=== PATIENT | male | born 1980 | race African-American/Black ===

== ENCOUNTER 2016-04-02 11:50 | Emergency (ER) | payer OTHER ==
[2016-04-02 11:52] VITALS: BP 137/78; PULSE 82; RESP 20; TEMP 97.5; O2SAT 97
== END 2016-04-02 12:38 | disposition left against medical advice (07) ==
LOC: NED 11:50
DX: R68.89 Other general symptoms and signs (principal)
CPT/HCPCS: 99281

== ENCOUNTER 2016-06-09 08:04 | Emergency (ER) | payer OTHER ==
[~2016-06-09] VITALS: Ht 167.6 cm; Wt 65.0 kg
[2016-06-09 08:05] VITALS: BP 124/74; PULSE 71; RESP 15; TEMP 98.2; O2SAT 98
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
[2016-06-09 09:05] LABS: AUTOMATED NEUTROPHIL # 2.8 TH/MM3 (1.8-7.7); BASOPHIL % 0.7 % (0.0-2.0); EOSINOPHIL # 0.4 TH/MM3 (0-0.4); EOSINOPHIL % 6.9 % (0.0-4.0); HEMATOCRIT 43.3 % (39.0-51.0); LYMPHOCYTE # 1.8 TH/MM3 (1.0-4.8); MEAN CELL VOLUME 85.4 FL (80.0-100.0); MEAN CORPUSCULAR HEMOGLOBIN 29.2 PG (27.0-34.0); MEAN CORPUSCULAR HGB CONC 34.2 % (32.0-36.0); MONO % 11.4 % (0.0-8.0); PLATELET COUNT 243 TH/MM3 (150-450); RED BLOOD COUNT 5.07 MIL/MM3 (4.50-5.90); RED CELL DISTRIBUTION WIDTH 13.6 % (11.6-17.2); WHITE BLOOD COUNT 5.8 TH/MM3 (4.0-11.0)
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
[2016-06-09 09:10] LABS: HEMO FLAGS AUTO DIFF
[2016-06-09] MEDS ORDERED: HALO100P IM (09:10)
[2016-06-09] MEDS ORDERED: TETANUS/DIPHTHERIA TOXOID ADULT 0.5 ML VIAL IM ONE (09:15)
--- NOTE | 2016-06-09 09:15 | RADRPT ---
EXAM DATE/TIME: 06/09/2016 09:00 [facility] COMPARISON: No previous studies available for comparison. INDICATIONS : Laceraion to eyelid, and forehead RADIATION DOSE: 36.51 CTDIvol (mGy) MEDICAL HISTORY : None SURGICAL HISTORY : None. ENCOUNTER: Initial ACUITY: 1 day PAIN SCALE: Non-responsive LOCATION: cranial TECHNIQUE: Multiple contiguous axial images were obtained of the head. Using automated exposure control and adj ustment of the mA and/or kV according to patient size, radiation dose was kept as low as reasonably a chievable to obtain optimal diagnostic quality images. FINDINGS: CEREBRUM: The ventricles are normal for age. No evidence of midline shift, mass lesion, hemorrhage or acute in farction. No extra-axial fluid collections are seen. POSTERIOR FOSSA: The cerebellum and brainstem are intact. The 4th ventricle is midline. The cerebellopontine angle i s unremarkable. EXTRACRANIAL: The visualized portion of the orbits is intact. SKULL: The calvaria is intact. No evidence of skull fracture. CONCLUSION: Negative trauma CT. Terry Blanco MD on June 09, 2016 at 9:12 Board Certified Radiologist. This report was verified electronically.
[2016-06-09 09:21] LABS: ANION GAP 9 MEQ/L (5-15); AST (GOT) 20 U/L (15-37); BICARBONATE 27.3 MEQ/L (21.0-32.0); BLOOD UREA NITROGEN 13 MG/DL (7-18); CHLORIDE 102 MEQ/L (98-107); GLOMERULAR FILTRATION RATE 86 ML/MIN (>89); POTASSIUM 3.7 MEQ/L (3.5-5.1); SODIUM (NA) 138 MEQ/L (136-145)
[2016-06-09 09:24] LABS: ALKALINE PHOSPHATASE 64 U/L (45-117); ALT (GPT) 35 U/L (12-78); CREATINE KINASE 241 U/L (39-308); TOTAL BILIRUBIN ADULT 0.2 MG/DL (0.2-1.0)
[2016-06-09 09:25] LABS: ACETAMINOPHEN LESS THAN 2.0 MCG/ML (10.0-30.0)
--- NOTE | 2016-06-09 09:36 | RADRPT ---
EXAM DATE/TIME: 06/09/2016 09:00 [facility] COMPARISON: No previous studies available for comparison. INDICATIONS : Laceraion to eyelid and forehead RADIATION DOSE: 16.96 CTDIvol (mGy) MEDICAL HISTORY : None SURGICAL HISTORY : None. ENCOUNTER: Initial ACUITY: 1 day PAIN SCALE: Non-responsive LOCATION: neck TECHNIQUE: Volumetric scanning of the cervical spine was performed. Multiplanar reconstructions in the sagittal, coronal and oblique axial planes were performed. Using automated exposure control and adjustment o f the mA and/or kV according to patient size, radiation dose was kept as low as reasonably achievable to obtain optimal diagnostic quality images. FINDINGS: There is normal sagittal spine alignment of the cervical spine. No anterolisthesis or retrolisthesis is present. The atlantoaxial relationship is within normal limits. There is no prevertebral soft tiss ue swelling present. No fracture or dislocation is identified. No disc herniation is visualized in th e upper cervical spine. The visualized portions of the posterior fossa, paraspinous soft tissues, and upper lung zones demons trate no acute abnormality. CONCLUSION: No acute cervical spine abnormality is identified. Higinio Kee MD on June 09, 2016 at 9:31 Board Certified Radiologist. This report was verified electronically.
[2016-06-09 09:40] LABS: PLATELET ESTIMATE SMEAR NORMAL (NORMAL); PLATELET MORPHOLOGY NORMAL (NORMAL); SCAN/DIFF AUTO DIFF CONFIRMED
--- NOTE | 2016-06-09 10:14 | RADRPT ---
EXAM DATE/TIME: 06/09/2016 10:03 [facility] COMPARISON: No previous studies available for comparison. INDICATIONS : Left hand pain and laceration, cut on broken window. MEDICAL HISTORY : None. SURGICAL HISTORY : None. ENCOUNTER: Initial ACUITY: 1 day PAIN SCORE: 5/10 LOCATION: Left anterior hand, first metacarpal FINDINGS: A standard 3 view examination of the left hand was obtained and demonstrates a small radiopaque forei gn body in the soft tissues adjacent to the first metacarpal. This measures approximately 2 x 0.1 mm in diameter. There are no bony abnormalities. CONCLUSION: Small radiopaque foreign body most consistent with a glass fragment. Terry Blanco MD on June 09, 2016 at 10:10 Board Certified Radiologist. This report was verified electronically.
[2016-06-09] MEDS ORDERED: LIDOCAINE HCL 1% 50 ML VIAL INFIL ONE (10:45)
--- NOTE | 2016-06-09 11:19 | PD ---
Physical Exam Time Seen by Provider: 10:30 Narrative I was asked by Dr. Shabazz to perform laceration repair and fb removal. Data Data Last Documented VS Vital Signs Date Time Temp Pulse Resp B/P Pulse Ox O2 Delivery O2 Flow Rate FiO2 06/09/16 08:18 82 06/09/16 08:05 98.2 15 124/74 98 Orders Complete Blood Count With Diff (06/09/16 08:24) Comprehensive Metabolic Panel (06/09/16 08:24) Psych Screen (06/09/16 08:24) Drug Screen, Random Urine (06/09/16 08:24) Alcohol (Ethanol) (06/09/16 08:24) Salicylates (Aspirin) (06/09/16 08:24) Tylenol (Acetaminophen) (06/09/16 08:24) Creatine Kinase (Cpk) (06/09/16 08:24) Ct Brain W/O Iv Contrast(Rout) (06/09/16 08:24) Ct Cerv Spine W/O Contrast (06/09/16 08:24) Apply Cervical Collar (06/09/16 08:24) Chest, Pa & Lat (06/09/16 ) Tetanus/Diphtheria Tox Adult (Tetanus/Di (06/09/16 09:15) Hand, Complete ([id number]) (06/09/16 ) Lidocaine 1% Inj (50 Ml) (Xylocaine 1% I (06/09/16 10:45) Labs Laboratory Tests Test 06/09/16 08:50 White Blood Count 5.8 TH/MM3 Red Blood Count 5.07 MIL/MM3 Hemoglobin 14.8 GM/DL Hematocrit 43.3 % Mean Corpuscular Volume 85.4 FL Mean Corpuscular Hemoglobin 29.2 PG Mean Corpuscular Hemoglobin 34.2 % Concent Red Cell Distribution Width 13.6 % Platelet Count 243 TH/MM3 Mean Platelet Volume 8.3 FL Neutrophils (%) (Auto) 49.0 % Lymphocytes (%) (Auto) 32.0 % Monocytes (%) (Auto) 11.4 % Eosinophils (%) (Auto) 6.9 % Basophils (%) (Auto) 0.7 % Neutrophils # (Auto) 2.8 TH/MM3 Lymphocytes # (Auto) 1.8 TH/MM3 Monocytes # (Auto) 0.7 TH/MM3 Eosinophils # (Auto) 0.4 TH/MM3 Basophils # (Auto) 0.0 TH/MM3 CBC Comment AUTO DIFF Differential Comment AUTO DIFF CONFIRMED Platelet Estimate NORMAL Platelet Morphology Comment NORMAL Sodium Level 138 MEQ/L Potassium Level 3.7 MEQ/L Chloride Level 102 MEQ/L Carbon Dioxide Level 27.3 MEQ/L Anion Gap 9 MEQ/L Blood Urea Nitrogen 13 MG/DL Creatinine 1.17 MG/DL Estimat Glomerular Filtration 86 ML/MIN Rate Random Glucose 78 MG/DL Calcium Level 8.7 MG/DL Total Bilirubin 0.2 MG/DL Aspartate Amino Transf 20 U/L (AST/SGOT) Alanine Aminotransferase 35 U/L (ALT/SGPT) Alkaline Phosphatase 64 U/L Total Creatine Kinase 241 U/L Total Protein 7.5 GM/DL Albumin 3.6 GM/DL Salicylates Level 2.3 MG/DL Acetaminophen Level LESS THAN 2.0 MCG/ML Ethyl Alcohol Level LESS THAN 3 MG/DL MDM Medical Record Reviewed: Yes Supervised Visit with BALAJI: No Differential Diagnosis forehead laceration, left hand laceration, left hand fb Narrative Course I examined the patient. He has a small 0.5 cm laceration above his left forehead. I discussed repair and patient was very concerned. It was difficult to assess area as patient would not sit still. I eventually was able to properly assess, clean and repair. I used dermabond and steri strip to the laceration. Patient tolerated without incident. He has a small superficial laceration to the left hand proximal to thumb on the dorsum. I was able to clean the area and also closed using dermabond and 2 steri strips. I went to locally anesthetize the left hand foreign body and laceration and patient started to jump and tense up. I tried to discuss repair with him and he would not allow me to locally anesthetize. I started working on the patient at 10:30 and at 10:56 he requested someone come to the room to hold his hand. He also requested that I put him to sleep. I explained that the procedure would be very quick. Despite numerous attempts, patient would not allow me to administer lidocaine. 1105: I discussed with Dr. Shabazz and signed off the case. Another provider will try to assist the patient once he is ready. Procedures Procedure Narrative left facial laceration above the eye brow: 0.5 cm area properly cleaned and dermabond with single steri strip used to approximate and close. Patient tolerated without incident. Left hand proximal to thumb on dorsum: 2 cm laceration (superficial) area cleaned and dermabond and two steri strips applied. Patient tolerated without incident. Diagnosis Primary Impression: Facial laceration Qualified Code: S01.81XA - Facial laceration, initial encounter Condition: Stable Erma Rodriguez Jun 09, 2016 11:19
[2016-06-09] MEDS ORDERED: CLIN1CAP6 PO (11:40)
--- NOTE | 2016-06-09 11:43 | PD ---
Physical Exam Time Seen by Provider: 11:39 Narrative I was asked to perform a laceration repair to this patient's left hand. For further details regarding the patient's visit please see the physician's documentation. Data Data Last Documented VS Vital Signs Date Time Temp Pulse Resp B/P Pulse Ox O2 Delivery O2 Flow Rate FiO2 06/09/16 08:18 82 06/09/16 08:05 98.2 15 124/74 98 Orders Complete Blood Count With Diff (06/09/16 08:24) Comprehensive Metabolic Panel (06/09/16 08:24) Psych Screen (06/09/16 08:24) Drug Screen, Random Urine (06/09/16 08:24) Alcohol (Ethanol) (06/09/16 08:24) Salicylates (Aspirin) (06/09/16 08:24) Tylenol (Acetaminophen) (06/09/16 08:24) Creatine Kinase (Cpk) (06/09/16 08:24) Ct Brain W/O Iv Contrast(Rout) (06/09/16 08:24) Ct Cerv Spine W/O Contrast (06/09/16 08:24) Apply Cervical Collar (06/09/16 08:24) Chest, Pa & Lat (06/09/16 ) Tetanus/Diphtheria Tox Adult (Tetanus/Di (06/09/16 09:15) Hand, Complete ([id number]) (06/09/16 ) Lidocaine 1% Inj (50 Ml) (Xylocaine 1% I (06/09/16 10:45) Diet Regular Basic (06/09/16 Lunch) Labs Laboratory Tests Test 06/09/16 08:50 White Blood Count 5.8 TH/MM3 Red Blood Count 5.07 MIL/MM3 Hemoglobin 14.8 GM/DL Hematocrit 43.3 % Mean Corpuscular Volume 85.4 FL Mean Corpuscular Hemoglobin 29.2 PG Mean Corpuscular Hemoglobin 34.2 % Concent Red Cell Distribution Width 13.6 % Platelet Count 243 TH/MM3 Mean Platelet Volume 8.3 FL Neutrophils (%) (Auto) 49.0 % Lymphocytes (%) (Auto) 32.0 % Monocytes (%) (Auto) 11.4 % Eosinophils (%) (Auto) 6.9 % Basophils (%) (Auto) 0.7 % Neutrophils # (Auto) 2.8 TH/MM3 Lymphocytes # (Auto) 1.8 TH/MM3 Monocytes # (Auto) 0.7 TH/MM3 Eosinophils # (Auto) 0.4 TH/MM3 Basophils # (Auto) 0.0 TH/MM3 CBC Comment AUTO DIFF Differential Comment AUTO DIFF CONFIRMED Platelet Estimate NORMAL Platelet Morphology Comment NORMAL Sodium Level 138 MEQ/L Potassium Level 3.7 MEQ/L Chloride Level 102 MEQ/L Carbon Dioxide Level 27.3 MEQ/L Anion Gap 9 MEQ/L Blood Urea Nitrogen 13 MG/DL Creatinine 1.17 MG/DL Estimat Glomerular Filtration 86 ML/MIN Rate Random Glucose 78 MG/DL Calcium Level 8.7 MG/DL Total Bilirubin 0.2 MG/DL Aspartate Amino Transf 20 U/L (AST/SGOT) Alanine Aminotransferase 35 U/L (ALT/SGPT) Alkaline Phosphatase 64 U/L Total Creatine Kinase 241 U/L Total Protein 7.5 GM/DL Albumin 3.6 GM/DL Salicylates Level 2.3 MG/DL Acetaminophen Level LESS THAN 2.0 MCG/ML Ethyl Alcohol Level LESS THAN 3 MG/DL MDM Supervised Visit with BALAJI: No Procedures Procedure Narrative LACERATION LOCATION: Left hand volar aspect overlying the thenar eminence LENGTH: 2 cm NUMBER OF STITCHES/PEGGY: 5 sutures REPAIR: The area of the laceration was prepped with Betadine and sterilely draped. The laceration was infiltrated with 1% lidocaine. The wound was copiously irrigated and explored. X-ray read of the hand is showing he has a piece of glass in this laceration. I did find a black colored piece of debris that was removed. Otherwise no evidence of glass. No tendon injury or neurovascular injury. The wound was closed using 4.0 ethilon. This was a single layer repair. Antibiotic ointment and a sterile dressing was applied. The patient was advised to keep the dressing clean and dry. Patient tolerated the procedure well. Diagnosis Primary Impression: Facial laceration Qualified Code: S01.81XA - Facial laceration, initial encounter Additional Instruction: Wash wound gently with soap and water. Do not submerge it in water such as taking a bath or swimming. Apply topical antibiotic ointment twice daily. Have sutures removed in 7-10 days. Return to the ED for any signs of infection such as redness, swelling, pain, discharge or drainage. Condition: Stable Melinda Motley Jun 09, 2016 11:43
[2016-06-09 15:30] VITALS: BP 140/83; PULSE 67; RESP 16; O2SAT 100
[2016-06-09 17:55] VITALS: BP 150/74; PULSE 72; RESP 18; TEMP 98.3; O2SAT 98
[2016-06-09] MEDS ORDERED: VIST25CA PO (18:10)
[2016-06-09 22:00] VITALS: BP 140/86; PULSE 82; RESP 18; O2SAT 98
[2016-06-10 02:00] VITALS: BP 146/74; PULSE 94; RESP 18; O2SAT 98
[2016-06-10] MEDS ORDERED: IBUPROFEN 600 MG TAB PO ONE (04:00)
[2016-06-10 06:24] VITALS: BP 139/86; PULSE 97; RESP 17; O2SAT 80
[2016-06-10 10:02] VITALS: PULSE 96; O2SAT 99
[2016-06-10 10:12] LABS: AMPHETAMINE, URINE NEG (NEG); BARBITURATES, URINE NEG (NEG); COCAINE, URINE NEG (NEG)
--- NOTE | 2016-06-10 10:57 | PD ---
History of Present Illness Chief Complaint: Psychiatric Symptoms Time Seen by Provider: 10:45 Travel History International Travel<30 Days: No Contact w/Intl Traveler<30days: No Known affected area: No Legal Status Legal Status: Gabriel Act Gabriel Act Signed By: ANN Gabriel Act Comment: CERTIFICATE OF PROFESSIONAL INITIATING INVOLUNTARY [id number] History of Present Illness: 35-year-old male who is brought in and Gabriel acted by the emergency department physician. Diagnosed with psychosis and possible history of flakka use. At this time the patient appears more clear and consistent. He states that he was incarcerated in the past and he was seen at [facility] in the past but he currently has a job. 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 He is denying any suicidal or homicidal ideation, plan or intent. He also denies any symptoms of psychosis. He states that he is not schizophrenic. At this time it appears the patient has cleared, at least somewhat. He is verbally nabeel for safety and he is alert and oriented 4, including situation. He is somewhat distressed about being Gabriel acted by the emergency room physician. He denies being a threat to himself or others. He is requesting that he be allowed to leave and feels it was wrong to Gabriel act him when he came here looking for help with his cut hand. PFSH Past Medical History Medical History: Denies Significant Hx Past Surgical History Surgical History: Unable to Obtain Psychiatric History Psychiatric History Hx Psychiatric Treatment: PARANOID SCHIZOPHRENIA. Patient may or may not have paranoid schizophrenia but he is currently denying it. History of Inpatient Treatment: Yes Guns or firearms in home: No Social History Hx Alcohol Use: No (denies ) Hx Tobacco Use: No Hx Substance Use: Yes (FLAKKA) Hx of Substance Use Treatment: No Allergies-Medications (Allergen,Severity, Reaction): Coded Allergies: Penicillin (Verified Allergy, Unknown, 06/09/16) Reported Meds & Prescriptions Reported Meds & Active Scripts Active Clindamycin (Clindamycin HCl) 300 Mg Cap 300 Mg PO TID 7 Days Reported Vistaril (Hydroxyzine Pamoate) 25 Mg Cap Unknown Dose PO HS Haldol Decanoate Inj (Haloperidol Decanoate) 100 Mg/Ml Inj 100 Mg IM Q28D Review of Systems ROS Limitations: Clinical Condition Except as stated in HPI: all other systems reviewed are Neg Exam Exam Limitations: Clinical Condition Alert: Yes [place]: Person, Place, Date, Situation Mood: Calm Affect: Appropriate Speech: Clear, Logical Eye Contact: Normal Memory Intact: Immediate, Recent, Remote Insight/Judgement Adequate MDM Medical Decision Making Medical Record Reviewed: Yes Assessment/Plan While this physician acknowledges the previous history and representations of other providers, at this time the patient is verbally nabeel for safety, not demonstrating psychotic thinking, not suicidal, not homicidal, and has a plan to care for himself. He would like to return home. He would like to continue to work. He states he was previously incarcerated and he would like to put his life back together. This physician feels the patient should be given an opportunity to be released. If he were to return to the emergency department for mental health related issues, that pattern of behavior would cause this physician to reconsider the plan. However, the patient has not been to this emergency room in the recent past for mental health related issues. Orders Diet Regular Basic (06/09/16 Lunch) Diet Regular Basic (06/09/16 Dinner) Ibuprofen (Motrin) (06/10/16 04:00) Diet Regular Basic (06/10/16 Breakfast) Results Vital Signs Date Time Temp Pulse Resp B/P Pulse Ox O2 Delivery O2 Flow Rate FiO2 06/10/16 10:02 96 99 Room Air 06/10/16 06:24 97 17 139/86 80 Room Air 06/10/16 02:00 94 18 146/74 98 Room Air 06/09/16 22:00 82 18 140/86 98 Room Air 06/09/16 17:55 98.3 72 18 150/74 98 Room Air 06/09/16 15:30 67 16 140/83 100 Room Air Laboratory Tests Test 06/10/16 09:40 Urine Opiates Screen NEG Urine Barbiturates Screen NEG Urine Amphetamines Screen NEG Urine Benzodiazepines Screen NEG Urine Cocaine Screen NEG Urine Cannabinoids Screen NEG Diagnosis Primary Impression: Adjustment disorder with mixed disturbance of emotions and conduct Referrals: Hand Surgeon 1 week call for appointment Patient Instructions: General Instructions Additional Instructions: Follow with hand surgeon for possible glass within laceration, take antibiotic as instructed Prescriptions Clindamycin 300 Mg [id number] Mg PO TID 7 Days Ref 0 Prov:Ethel Shabazz MD 06/09/16 Condition: Stable Raudel Schmidt MD Jun 10, 2016 10:57
== END 2016-06-10 11:32 | disposition home or self-care (01) ==
LOC: NEPC 08:04 → NEPJ 06-10 11:32
DX: S01.81XA Laceration without foreign body of other part of head, initial encounter (principal); S61.422A Laceration with foreign body of left hand, initial encounter; F20.0 Paranoid schizophrenia; W45.8XXA Other foreign body or object entering through skin, initial encounter; Z23 Encounter for immunization
CPT/HCPCS: 12001; 12011; 70450; 71020; 72125; 73130; 80053; 80307; 82550; 85025; 90471; 90714

== ENCOUNTER 2016-11-01 13:15 | Emergency (ER) | payer OTHER ==
[~2016-11-01] VITALS: Ht 167.6 cm; Wt 85.0 kg
[~2016-11-01 13:15] MED LIST: CLIN1CAP6 PO; HALO100P IM; VIST25CA PO
[2016-11-01 13:28] VITALS: BP 114/68; PULSE 89; RESP 18; TEMP 98.2; O2SAT 98
--- NOTE | 2016-11-01 14:46 | PD ---
HPI Chief Complaint: Psychiatric Symptoms Time Seen by Provider: 14:25 Travel History International Travel<30 days: No Contact w/Intl Traveler<30days: No Traveled to known affect area: No History of Present Illness HPI 35-year-old male presents to the emergency department for psychiatric evaluation. Patient states that he has been hearing voices. He states it has been ongoing for 2 years. Patient states that he tried to hurt himself to get away from the voices, but will not elaborate. Patient states that he does smoke flakka, last time was this morning. He denies any other drug use. Patient reports history of schizophrenia is not currently on medications. Patient denies any medical complaints at this time. He denies having visual hallucinations. [facility]LY [facility] Social History Alcohol Use: No (denies ) Tobacco Use: No Substance Use: Yes (FLAKKA) Allergies-Medications (Allergen,Severity, Reaction): Coded Allergies: penicillin G (Unverified Allergy, Unknown, 09/29/16) Reported Meds & Prescriptions Reported Meds & Active Scripts Active Clindamycin (Clindamycin HCl) 300 Mg Cap 300 Mg PO TID 7 Days Reported Vistaril (Hydroxyzine Pamoate) 25 Mg Cap Unknown Dose PO HS Haldol Decanoate Inj (Haloperidol Decanoate) 100 Mg/Ml Inj 100 Mg IM Q28D Review of Systems Except as stated in HPI: all other systems reviewed are Neg Physical Exam Narrative GENERAL: Well-nourished, well-developed male patient, afebrile. SKIN: Focused skin assessment warm/dry. HEAD: Normocephalic. Atraumatic. EYES: No scleral icterus. No injection or drainage. NECK: Supple, trachea midline. No JVD or lymphadenopathy. CARDIOVASCULAR: Regular rate and rhythm without murmurs, gallops, or rubs. RESPIRATORY: Breath sounds equal bilaterally. No accessory muscle use. Lungs sounds are clear to auscultation. GASTROINTESTINAL: Abdomen soft, non-tender, nondistended. MUSCULOSKELETAL: No cyanosis, or edema. PSYCHIATRIC: Patient is talking to himself in his room when I enter. He laughs inappropriately during conversation. Data Data Last Documented VS Vital Signs Date Time Temp Pulse Resp B/P (MAP) Pulse Ox O2 Delivery O2 Flow Rate FiO2 11/01/16 15:00 97.5 83 18 115/62 (79) 99 Room Air Orders Orders Complete Blood Count With Diff (11/01/16 14:26) Comprehensive Metabolic Panel (11/01/16 14:26) Psych Screen (11/01/16 14:26) Drug Screen, Random Urine (11/01/16 14:26) Alcohol (Ethanol) (11/01/16 14:26) Diet Regular Basic (11/01/16 Dinner) Labs Laboratory Tests Test 11/01/16 14:50 11/01/16 15:30 Urine Opiates Screen NEG Urine Barbiturates Screen NEG Urine Amphetamines Screen NEG Urine Benzodiazepines Screen NEG Urine Cocaine Screen NEG Urine Cannabinoids Screen POS White Blood Count 5.0 TH/MM3 Red Blood Count 5.06 MIL/MM3 Hemoglobin 14.6 GM/DL Hematocrit 44.0 % Mean Corpuscular Volume 86.8 FL Mean Corpuscular Hemoglobin 28.8 PG Mean Corpuscular Hemoglobin Concent 33.2 % Red Cell Distribution Width 13.5 % Platelet Count 262 TH/MM3 Mean Platelet Volume 7.9 FL Neutrophils (%) (Auto) 56.5 % Lymphocytes (%) (Auto) 31.1 % Monocytes (%) (Auto) 5.9 % Eosinophils (%) (Auto) 5.5 % Basophils (%) (Auto) 1.0 % Neutrophils # (Auto) 2.8 TH/MM3 Lymphocytes # (Auto) 1.6 TH/MM3 Monocytes # (Auto) 0.3 TH/MM3 Eosinophils # (Auto) 0.3 TH/MM3 Basophils # (Auto) 0.0 TH/MM3 CBC Comment DIFF FINAL Differential Comment Blood Urea Nitrogen 9 MG/DL Creatinine 1.12 MG/DL Random Glucose 72 MG/DL Total Protein 7.7 GM/DL Albumin 4.0 GM/DL Calcium Level 8.9 MG/DL Alkaline Phosphatase 70 U/L Aspartate Amino Transf (AST/SGOT) 20 U/L Alanine Aminotransferase (ALT/SGPT) 22 U/L Total Bilirubin 0.5 MG/DL Sodium Level 139 MEQ/L Potassium Level 3.6 MEQ/L Chloride Level 105 MEQ/L Carbon Dioxide Level 27.6 MEQ/L Anion Gap 6 MEQ/L Estimat Glomerular Filtration Rate 91 ML/MIN Ethyl Alcohol Level LESS THAN 3 MG/DL MDM Medical Decision Making Medical Screen Exam Complete: Yes Emergency Medical Condition: Yes Medical Record Reviewed: Yes Differential Diagnosis Schizophrenia versus depression versus anxiety versus substance abuse versus psychosis Narrative Course 35-year-old male with a history of schizophrenia presents to the emergency department for hearing voices. CBC, CMP, alcohol level, urine drug screen are ordered and pending. CBC shows no acute abnormality. CMP shows no acute normality. Alcohol level is less than 3. UDS is positive for cannabinoids. Patient is medically cleared for psychiatric screening and disposition. Mental health screening discussed with the patient. Psychiatric screen ordered. Diagnosis Primary Impression: Medical clearance for psychiatric admission Additional Instructions: Patient is medically cleared for psychiatric screening and disposition. Condition: Stable Saba Whitt Nov 01, 2016 14:46
[2016-11-01 15:00] VITALS: BP 115/62; PULSE 83; RESP 18; TEMP 97.5; O2SAT 99
[2016-11-01 15:45] LABS: AUTOMATED NEUTROPHIL # 2.8 TH/MM3 (1.8-7.7); EOSINOPHIL # 0.3 TH/MM3 (0-0.4); EOSINOPHIL % 5.5 % (0.0-4.0); HEMO FLAGS DIFF FINAL; LYMPH % 31.1 % (9.0-44.0); LYMPHOCYTE # 1.6 TH/MM3 (1.0-4.8); MEAN CELL VOLUME 86.8 FL (80.0-100.0); MEAN CORPUSCULAR HEMOGLOBIN 28.8 PG (27.0-34.0); MEAN CORPUSCULAR HGB CONC 33.2 % (32.0-36.0); MONO % 5.9 % (0.0-8.0); NEUT % 56.5 % (16.0-70.0); PLATELET COUNT 262 TH/MM3 (150-450); RED BLOOD COUNT 5.06 MIL/MM3 (4.50-5.90); RED CELL DISTRIBUTION WIDTH 13.5 % (11.6-17.2)
[2016-11-01 16:18] LABS: ALT (GPT) 22 U/L (12-78); ANION GAP 6 MEQ/L (5-15); AST (GOT) 20 U/L (15-37); BICARBONATE 27.6 MEQ/L (21.0-32.0); BLOOD UREA NITROGEN 9 MG/DL (7-18); CHLORIDE 105 MEQ/L (98-107); GLOMERULAR FILTRATION RATE 91 ML/MIN (>89); POTASSIUM 3.6 MEQ/L (3.5-5.1); SODIUM (NA) 139 MEQ/L (136-145)
[2016-11-01 16:20] LABS: ALKALINE PHOSPHATASE 70 U/L (45-117); TOTAL BILIRUBIN ADULT 0.5 MG/DL (0.2-1.0)
[2016-11-01 16:47] LABS: ALCOHOL LESS THAN 3 MG/DL (0-5)
[2016-11-02 06:26] VITALS: BP 115/55; PULSE 60; RESP 18
--- NOTE | 2016-11-02 08:51 | PD ---
Physical Exam Time Seen by Provider: 08:[address] Banegas has evaluated the patient and the patient will be discharged home. Data Data Last Documented VS Vital Signs Date Time Temp Pulse Resp B/P (MAP) Pulse Ox O2 Delivery O2 Flow Rate FiO2 11/02/16 06:26 60 18 115/55 (75) 11/01/16 15:00 97.5 99 Room Air Orders Orders Complete Blood Count With Diff (11/01/16 14:26) Comprehensive Metabolic Panel (11/01/16 14:26) Psych Screen (11/01/16 14:26) Drug Screen, Random Urine (11/01/16 14:26) Alcohol (Ethanol) (11/01/16 14:26) Diet Regular Basic (11/01/16 Dinner) Diet Regular Basic (11/02/16 Breakfast) Labs Laboratory Tests Test 11/01/16 14:50 11/01/16 15:30 Urine Opiates Screen NEG Urine Barbiturates Screen NEG Urine Amphetamines Screen NEG Urine Benzodiazepines Screen NEG Urine Cocaine Screen NEG Urine Cannabinoids Screen POS White Blood Count 5.0 TH/MM3 Red Blood Count 5.06 MIL/MM3 Hemoglobin 14.6 GM/DL Hematocrit 44.0 % Mean Corpuscular Volume 86.8 FL Mean Corpuscular Hemoglobin 28.8 PG Mean Corpuscular Hemoglobin Concent 33.2 % Red Cell Distribution Width 13.5 % Platelet Count 262 TH/MM3 Mean Platelet Volume 7.9 FL Neutrophils (%) (Auto) 56.5 % Lymphocytes (%) (Auto) 31.1 % Monocytes (%) (Auto) 5.9 % Eosinophils (%) (Auto) 5.5 % Basophils (%) (Auto) 1.0 % Neutrophils # (Auto) 2.8 TH/MM3 Lymphocytes # (Auto) 1.6 TH/MM3 Monocytes # (Auto) 0.3 TH/MM3 Eosinophils # (Auto) 0.3 TH/MM3 Basophils # (Auto) 0.0 TH/MM3 CBC Comment DIFF FINAL Differential Comment Blood Urea Nitrogen 9 MG/DL Creatinine 1.12 MG/DL Random Glucose 72 MG/DL Total Protein 7.7 GM/DL Albumin 4.0 GM/DL Calcium Level 8.9 MG/DL Alkaline Phosphatase 70 U/L Aspartate Amino Transf (AST/SGOT) 20 U/L Alanine Aminotransferase (ALT/SGPT) 22 U/L Total Bilirubin 0.5 MG/DL Sodium Level 139 MEQ/L Potassium Level 3.6 MEQ/L Chloride Level 105 MEQ/L Carbon Dioxide Level 27.6 MEQ/L Anion Gap 6 MEQ/L Estimat Glomerular Filtration Rate 91 ML/MIN Ethyl Alcohol Level LESS THAN 3 MG/DL MDM Supervised Visit with BALAJI: No Narrative Course Dr. Banegas has evaluated the patient, lifted the Gabriel act and the patient will be discharged home. Patient contracts safety. Denies suicidal or homicidal ideations. Patient will be provided community resource packet to [facility] for follow-up. Has friends and family for support. Patient is medically cleared for discharge. Diagnosis Primary Impression: Adjustment disorder with mixed disturbance of emotions and conduct Referrals: [facility] (Out patient) Primary Care Physician [facility]iatrist [facility] Additional Instruction: Contract safety to your self and others Follow-up with psychiatry Follow-up with primary care provider Follow-up with Juan Willson Return to the emergency department immediately with worsening of symptoms Disposition: 01 DISCHARGE HOME Condition: Stable Melinda Cochran [facility] Nov 02, 2016 08:51
[2016-11-02 09:40] VITALS: BP 115/55; TEMP 98.3
== END 2016-11-02 09:42 | disposition home or self-care (01) ==
LOC: NEPJ 13:15
DX: F43.25 Adjustment disorder with mixed disturbance of emotions and conduct (principal)
CPT/HCPCS: 80053; 80307; 85025; 99284